=== PATIENT | female | born 1950 | race Caucasian/White ===

== ENCOUNTER → 2018-04-26 | Outpatient (CLI) | payer OTHER, MEDICARE ==
[~2018-04-26] MED LIST: ALPRAZOLAM 0.50.5 M1 OR; ASPIRIN EC81 M1 OR; BENEFIBER1 G1 PO; CEPHALEXIN PO; DESYREL50 MG PO; IRON325 OR; LEXAPRO 10 MG T10 MG PO; OXYCODONE-APAP PO; PERCOCET 7.5-31 EACH PO; VITAMINC500 PO; XANAX 0.5 MG0.5 M1 PO; [UNRECOGNIZED DRUG - OTHER] PO
== END ==
LOC: M.RAD 14:27
DX: Z12.31 Encounter for screening mammogram for malignant neoplasm of breast (principal)

== ENCOUNTER → 2018-05-14 | Outpatient (CLI) | payer OTHER, MEDICARE ==
--- NOTE | 2018-05-14 13:28 | 2DMMODE ---
[place] [address] 2 D/M-MODE ECHOCARDIOGRAM Name: FAHEEM KELLY Room: [facility]#: [id number] Admission: 05/14/18 Attend Phys: Chilo Vera, Discharge: Date of : 54 Date of Service: 05/14/18 1328 Report #: [id number] THIS REPORT FOR: //name// APPROVED REPORT Study performed: 05/14/2018 10:17:08 EXAM: Comprehensive 2D, Doppler, and color-flow Echocardiogram Patient Location: Out-Patient Status: routine BSA: 1.83 HR: 79 bpm BP: 122/75 mmHg Other Information Study Quality: Fair Indications Palpitations Chest Pain 2D Dimensions IVSd: 9.80 (7-11mm) LVOT Diam: 20.62 (18-24mm) LVDd: 45.31 mm PWd: 8.38 (7-11mm) Ascending Ao: 26.72 (22-36mm) LVDs: 30.99 (25-40mm) Aortic Root: 27.92 mm Volumes Left Atrial Volume (Systole) LA ESV Index: 13.90 mL/m2 Aortic Valve AoV Peak Fredy.: 1.11 m/s AO Peak Gr.: 4.95 mmHg LVOT Max P.00 mmHg AO Mean Gr.: 2.79 mmHg LVOT Mean P.05 mmHg LVOT Max V: 0.71 m/s AO V2 VTI: 25.70 cm LVOT Mean V: 0.48 m/s ESPERANZA (VTI): 2.08 cm2 LVOT V1 VTI: 15.98 cm Mitral Valve E/A Ratio: 0.54 MV Decel. Time: 192.69 ms MV E Max Fredy.: 0.33 m/[place] [address] 2 D/M-MODE ECHOCARDIOGRAM Name: FAHEEM KELLY Room: [facility]#: [id number] Admission: 05/14/18 Attend Phys: Chilo Vera, Discharge: Date of : 54 Date of Service: 05/14/18 1328 Report #: [id number] MV PHT: 55.88 ms MVA (PHT): 3.94 cm2 TDI E/Lateral E': 4.71 E/Medial E': 4.13 Medial E' Fredy.: 0.08 m/s Lateral E' Fredy.: 0.07 m/s Pulmonary Valve PV Peak Fredy.: 0.68 m/s PV Peak Gr.: 1.83 mmHg Tricuspid Valve RAP Estimate: 5.00 mmHg TR Peak Gr.: 15.30 mmHg RVSP: 20.30 mmHg PA Pressure: 20.30 mmHg Left Ventricle The left ventricle is normal size. There is normal LV segmental wall motion. There is normal left ventricular wall thickness. Left ventricular systolic function is normal. The left ventricular ejection fraction is within the normal range. LVEF is 55-60%. Grade I - abnormal relaxation pattern. Right Ventricle The right ventricle is normal size. The right ventricular systolic function is normal. Atria The left atrium size is normal. The right atrium size is normal. Aortic Valve The aortic valve is normal in structure. No aortic regurgitation is present. There is no aortic valvular stenosis. Mitral Valve The mitral valve is normal in structure. Mild mitral regurgitation. No evidence of mitral valve stenosis. Tricuspid Valve The tricuspid valve is normal in structure. Trace tricuspid regurgitation. Pulmonic Valve Pulmonic valve is not well visualized. There is no pulmonic [place] [address] 2 D/M-MODE ECHOCARDIOGRAM Name: FAHEEM KELLY Sania Room: [facility]#: [id number] Admission: 05/14/18 Attend Phys: Chilo Vera, Discharge: Date of : 54 Date of Service: 05/14/18 1328 Report #: [id number] Great Vessels The aortic root is normal in size. IVC is normal in size and collapses with >50% inspiration Pericardium There is no pericardial effusion. <Conclusion> Left ventricular systolic function is normal. The left ventricular ejection fraction is within the normal range. <ELECTRONICALLY SIGNED> By: Germain Mccall MD, [facility] 05/14/18 1328 27 27 Germain Mccall MD, FAC /INF
== END ==
LOC: M.CRD 03-19 14:00
DX: I34.0 Nonrheumatic mitral (valve) insufficiency (principal); R92.2 Inconclusive mammogram

== ENCOUNTER → 2019-10-07 | Outpatient (CLI) | payer MEDICARE, OTHER | LOC: M.RAD 11:31 | DX: Z12.31 Encounter for screening mammogram for malignant neoplasm of breast (principal); N63.10 Unspecified lump in the right breast, unspecified quadrant; R07.81 Pleurodynia; T14.90XA Injury, unspecified, initial encounter; X58.XXXA Exposure to other specified factors, initial encounter; Y93.89 Activity, other specified; Y92.89 Other specified places as the place of occurrence of the external cause; Y99.8 Other external cause status ==

== ENCOUNTER → 2019-10-17 | Outpatient (CLI) | payer MEDICARE, OTHER | LOC: M.ULTRA 10:30 | DX: N60.01 Solitary cyst of right breast (principal); N63.21 Unspecified lump in the left breast, upper outer quadrant ==

== ENCOUNTER → 2020-03-23 | Outpatient (CLI) | payer MEDICARE, OTHER | LOC: M.CT 02-24 11:00 | PROVIDERS: ATTEND Registered Nurse Diabetes Educator | DX: F41.8 Other specified anxiety disorders (principal) ==

== ENCOUNTER → 2021-06-10 | Outpatient (CLI) | payer MEDICARE, OTHER | LOC: M.RAD 10:30 | PROVIDERS: ATTEND Registered Nurse Diabetes Educator | DX: Z12.31 Encounter for screening mammogram for malignant neoplasm of breast (principal) ==

== ENCOUNTER → 2021-06-15 | Outpatient (CLI) | payer MEDICARE, OTHER | LOC: M.ULTRA 10:20 | PROVIDERS: ATTEND Registered Nurse Diabetes Educator | DX: N64.89 Other specified disorders of breast (principal); N60.01 Solitary cyst of right breast ==

== ENCOUNTER → 2021-06-25 | Outpatient (CLI) | payer MEDICARE, OTHER | LOC: M.ULTRA 12:57 | PROVIDERS: ATTEND Registered Nurse Diabetes Educator | DX: N60.02 Solitary cyst of left breast (principal); R92.8 Other abnormal and inconclusive findings on diagnostic imaging of breast; Z98.82 Breast implant status ==